=== PATIENT | female | born 1985 | race Caucasian/White ===

== ENCOUNTER 2016-09-28 20:46 | Emergency (ER) | payer BC, OTHER ==
[2016-09-28 21:00] VITALS: BP 117/72
[2016-09-28] MEDS ORDERED: Promethazine 25 MG Tab PO ONE ×2 (21:12→22:40)
--- NOTE | 2016-09-28 21:25 | EDM.PDOC ---
ED HPI GENERAL MEDICAL PROBLEM - General Chief Complaint: [employer] Problem Stated Complaint: NAUSEA Time Seen by Provider: 09/28/16 20:50 Source of Information: Reports: Patient History Limitations: Reports: No Limitations - History of Present Illness INITIAL COMMENTS - FREE TEXT/NARRATIVE: This is a 31-year-old female. She is approximately 6 weeks . She knows she is from home test but she has not had her first visit with her OB doctor at this time. Over the last 4 days if not weeks she's been having increasing nausea. Today she had multiple episodes of nausea and gagging. She is able to keep water down but she's not been able to eat anything and smells bother her. She states she has had the nausea with each of her pregnancies in the past and normally after 12 weeks the nausea goes away. She states Phenergan really works well for her. She is here in the ER simply for relief of her nausea. She says she feels like she's hydrated and doesn't really need any IV fluids or anything else. She is a 5 para 3 abortus one. Had no recent illnesses otherwise no abdominal cramping no vaginal discharge or bleeding him and no cough congestion fever or chills. She does not want any lab work or test done since she knows she is . She just wants something for the nausea. - Related Data Allergies Allergy/AdvReac Type Severity Reaction Status Date / Time No Known Allergies Allergy Verified 08/26/15 19:01 Home Meds: Home Meds Promethazine [Phenergan] 25 mg PO Q8H PRN #30 tablet 09/28/16 [Rx] Past Medical History - Past Health History Medical/Surgical History: Denies Medical/Surgical History [employer] History: Reports: Social & Family History - Tobacco Use Smoking Status *Q: Never Smoker - Recreational Drug Use Recreational Drug Use: No ED ROS GENERAL - Review of Systems Review Of Systems: See Below Constitutional: Denies: Fever, Chills HEENT: Reports: No Symptoms Respiratory: Reports: No Symptoms Cardiovascular: Reports: No Symptoms Endocrine: Reports: No Symptoms GI/Abdominal: Reports: Nausea, Vomiting. Denies: Abdominal Pain, Diarrhea : Reports: No Symptoms Musculoskeletal: Reports: No Symptoms Skin: Reports: No Symptoms Neurological: Reports: No Symptoms Psychiatric: Reports: No Symptoms Hematologic/Lymphatic: Reports: No Symptoms ED EXAM - Physical Exam Exam: See Below Exam Limited By: No Limitations General Appearance: Alert, WD/WN, No Apparent Distress Eye Exam: Bilateral Eye: Normal Inspection Ears: Normal External Exam Nose: Normal Inspection Throat/Mouth: Normal Inspection, Normal Lips, Normal Voice, Other (Moist mucous membranes) Head: Normocephalic Neck: Supple Respiratory/Chest: No Respiratory Distress, Lungs Clear, Normal Breath Sounds Cardiovascular: Regular Rate, Rhythm, No Murmur GI/Abdominal: Soft Back Exam: Full Range of Motion Extremities: Normal Inspection, Normal Range of Motion Neurological: Alert, Oriented Psychiatric: Normal Affect, Normal Mood Skin Exam: Warm, Dry Course - Vital Signs Last Recorded V/S: Last Vital Signs Temp 98.2 F 09/28/16 20:59 Pulse 68 09/28/16 20:59 Resp 20 09/28/16 20:59 BP 117/72 09/28/16 20:59 Pulse Ox 100 09/28/16 20:59 - Orders/Labs/Meds Meds: Medications Discontinued Medications Generic Name Dose Route Start Last Admin Trade Name Moisesq PRN Reason Stop Dose Admin Promethazine HCl 25 mg 09/28/16 21:12 09/28/16 21:28 Phenergan PO 09/28/16 21:13 25 mg ONETIME ONE Administration - Re-Assessments/Exams Free Text/Narrative Re-Assessment/Exam: 09/28/16 22:37 The nausea has eased considerably and the patient wants to go home Departure - Departure Time of Disposition: 22:37 Disposition: Home, Self-Care 01 Condition: good Clinical Impression: First trimester , Nausea and vomiting during prior to 22 weeks gestation - Discharge Information Prescriptions: Promethazine [Phenergan] 25 mg PO Q8H PRN #30 tablet PRN Reason: Nausea Referrals: Vee Haile MD [Physician] - Forms: ED Department Discharge Additional Instructions: Continued to stay well hydrated, use the Phenergan every 6-8 hours as needed for nausea, followup with Dr. Vee Haile by giving her clinic to call on Saturday for your first OB appointment, if there's marked worsening of your symptoms and you cannot keep any fluids or food down return to the ER
== END 2016-09-28 22:51 | disposition home or self-care (01) ==
LOC: JD.ED 20:46
DX: O21.2 Late vomiting of pregnancy (principal); Z3A.22 22 weeks gestation of pregnancy; Z79.899 Other long term (current) drug therapy
CPT/HCPCS: 99283; Q0169